=== PATIENT | male | born 1980 | race American Indian/Alaskan Native ===

== ENCOUNTER 2017-01-21 01:53 | Emergency (ER) | payer SELFPAY ==
[2017-01-21 02:14] VITALS: BP 135/89
[2017-01-21] MEDS ORDERED: AUGMENTIN 875 MG PO ONE (03:14)
[2017-01-21] MEDS ORDERED: TYLENOL #3 PO ONE (03:14)
--- NOTE | 2017-01-21 03:29 | Emergency Department Report ---
HPI - General Chief Complaint: Dental/Oral Time Seen by Provider: 01/21/17 02:35 - HPI HPI: The patient is a 36-year-old male who presents to ED complaining of 10/10 pain in the right side of his mouth x 14 days . Patient states that the pain has increased in severity over the last 2-3 days. The pain is exacerbated by eating and opening of the mouth. Patient states the pain is alleviated initially with pain medication but comes back. Patient states that it radiates towards ear. Patient describes a as a throbbing, pressure-like sensation. Patient states otherwise well and has no other complaints. Patient has had no fevers and no chills. No chest pain, no shortness of breath. No abdominal pain. No shortness of breath or recent trauma to the face. ED Past Medical Hx - Past Medical History Previous Medical History?: Yes Hx Asthma: Yes - Surgical History Past Surgical History?: Yes - Social History Smoking Status: Current Every Day Smoker Substance Use Type: Alcohol - Medications Home Medications: Home Medications Medication Instructions Recorded Confirmed Last Taken Type Albuterol Sulfate [Ventolin HFA] 2 puff IH Q4H PRN 04/12/15 04/12/15 Unknown History HYDROcodone/APAP 10-325 [[place] 1 each PO Q6HR PRN #30 tablet 04/12/15 Unknown Rx 10/325] Acetaminophen/Codeine [Tylenol 1 tab PO QHS PRN #10 tablet 01/21/17 Unknown Rx /Codeine # 3 tab] Amoxicillin/K Clav Tab [Augmentin 1 each PO BID #12 tablet 01/21/17 Unknown Rx 875MG TAB] Ibuprofen [Motrin 800 MG tab] 800 mg PO Q8HR PRN #60 tablet 01/21/17 Unknown Rx ED Review of Systems ROS: Stated complaint: TOOTH PAIN Other details as noted in HPI Constitutional: denies: chills, fever Eyes: denies: eye pain, eye discharge, vision change ENT: denies: ear pain, throat pain Respiratory: denies: cough, shortness of breath, wheezing Cardiovascular: denies: chest pain, palpitations Endocrine: no symptoms reported Gastrointestinal: denies: abdominal pain, nausea, diarrhea Genitourinary: denies: urgency, dysuria Musculoskeletal: denies: back pain, joint swelling, arthralgia Skin: denies: rash, lesions Neurological: denies: headache, weakness, paresthesias Psychiatric: denies: anxiety, depression Hematological/Lymphatic: denies: easy bleeding, easy bruising Physical Exam - Physical Exam Vital Signs: Vital Signs 01/21/17 02:06 Temperature 98 F Pulse Rate 84 Respiratory 18 Rate Blood Pressure 135/89 O2 Sat by Pulse 100 Oximetry Physical Exam: GENERAL: Alert and oriented x3, no apparent distress, Normal Gait, atraumatic. HEAD: Head is normocephalic and a-traumatic. EYES: Extra ocular muscles are intact. Pupils are equal, round, and reactive to light and accommodation. MOUTH:Mouth is well hydrated and without lesions. Tonsils nonerythematous or swollen, Uvula midline, Tongue not elevated. Mucous membranes are moist. Posterior pharynx clear, no exudate or lesions. Patent airways. Dental caries noticed blood on the left last 3 teeth. Nontender to palpation, no gingival enlargement NECK: Supple. Non edematous, No carotid bruits. No lymphadenopathy or thyromegaly. No C-spine tenderness LUNGS: Symetrical with respiration, No wheezing, no rales or crackles, CTAB. HEART: S1, S2 present, regular rate and rhythm without murmur, no rubs, no gallops. ED Course Vital Signs 01/21/17 02:06 Temperature 98 F Pulse Rate 84 Respiratory 18 Rate Blood Pressure 135/89 O2 Sat by Pulse 100 Oximetry ED Medical Decision Making - Medical Decision Making 36-year-old female who presents with left-sided Facial pain secondary to odontogenic caries ED course: Patient received 875mg of Augmentin 1 tablets of Tylenol No. 3. Discussed with the patient this is a possible Odontogenic infection . the pain he feels on the left side of his face and towards the ear is referred pain from this infectious process. he has no evidence of acute impending airway compromise. At this point, patient will be discharged home on some antibiotics and pain trial, she will do well with an outpatient course of antibiotics. Follow up with the Dental Clinic as referred Critical care attestation.: If time is entered above; I have spent that time in minutes in the direct care of this critically ill patient, excluding procedure time. ED Disposition Clinical Impression: Dental caries Disposition: - TO HOME OR SELFCARE Is pt being admited?: No Does the pt Need Aspirin: No Condition: Stable Instructions: Toothache (ED), Dental Caries (ED) Additional Instructions: Follow-up with the dentist Prescriptions: Acetaminophen/Codeine [Tylenol /Codeine # 3 tab] 1 tab PO QHS PRN #10 tablet PRN Reason: Breakthrough Pain Amoxicillin/K Clav Tab [Augmentin 875MG TAB] 1 each PO BID #12 tablet Ibuprofen [Motrin 800 MG tab] 800 mg PO Q8HR PRN #60 tablet PRN Reason: anti-inflammatory/pain/fever Referrals: PRIMARY CARE, [Primary Care Provider] - 3-5 Days [facility] [Outside] - 3-5 Days [facility] [Outside] - 3-5 Days Forms: Accompanied Note, Work/School Release Form(ED) Time of Disposition: 03:40
== END 2017-01-21 03:51 | disposition home or self-care (01) ==
LOC: ED 01:53
DX: K02.9 Dental caries, unspecified (principal); J45.909 Unspecified asthma, uncomplicated; F17.200 Nicotine dependence, unspecified, uncomplicated
CPT/HCPCS: 99282

== ENCOUNTER 2022-04-11 19:47 | Emergency (ER) | payer SELFPAY ==
[2022-04-12 04:54] VITALS: BP 160/107
[2022-04-12] MEDS ORDERED: cephALEXin 500 MG CAP PO ONE (05:19)
[2022-04-12] MEDS ORDERED: traMADol 50 MG TAB PO ONE (05:19)
--- NOTE | 2022-04-12 05:46 | Emergency Department Report ---
ED General Adult HPI - General Chief complaint: Skin/Abscess/Foreign Body Stated complaint: ABSCESS INTER THIGH Time Seen by Provider: 04/12/22 05:41 Source: patient Mode of arrival: Ambulatory Limitations: No Limitations - History of Present Illness Initial comments: 42-year-old male who presents for abscess to left inner thigh. States burning itching, Pain to touch. Patient denies fevers or chills no nausea no vomiting. Patient denies history of diabetes. No other symptoms. - Related Data Home Medications Medication Instructions Recorded Confirmed Last Taken Albuterol Sulfate [Ventolin HFA] 2 puff IH Q4H PRN 04/12/15 04/12/15 Unknown Previous Rx's Medication Instructions Recorded Last Taken Type HYDROcodone/APAP 10-325 [[place] 1 each PO Q6HR PRN #30 tablet 04/12/15 Unknown Rx 10/325] Acetaminophen/Codeine [Tylenol 1 tab PO QHS PRN #10 tablet 01/21/17 Unknown Rx /Codeine # 3 tab] Amoxicillin/K Clav Tab [Augmentin 1 each PO BID #12 tablet 01/21/17 Unknown Rx 875MG TAB] Ibuprofen [Motrin 800 MG tab] 800 mg PO Q8HR PRN #60 tablet 01/21/17 Unknown Rx cephALEXin [Keflex] 500 mg PO Q8HR 7 Days #21 cap 04/12/22 Unknown Rx traMADoL [Ultram] 50 mg PO Q6HR PRN #12 tablet 04/12/22 Unknown Rx Allergies Allergy/AdvReac Type Severity Reaction Status Date / Time No Known Allergies Allergy Verified 04/12/15 11:37 ED Review of Systems ROS: Stated complaint: ABSCESS INTER THIGH Other details as noted in HPI Constitutional: denies: chills, fever Eyes: denies: eye pain, eye discharge, vision change ENT: denies: ear pain, throat pain Respiratory: denies: cough, shortness of breath, wheezing Cardiovascular: denies: chest pain, palpitations Endocrine: no symptoms reported Gastrointestinal: denies: abdominal pain, nausea, diarrhea Genitourinary: denies: urgency, dysuria Musculoskeletal: denies: back pain, joint swelling, arthralgia Skin: other (Abscess left inner thigh). denies: rash, lesions Neurological: denies: headache, weakness, paresthesias Psychiatric: denies: anxiety, depression Hematological/Lymphatic: as per HPI ED Past Medical Hx - Past Medical History Hx Asthma: Yes - Social History Smoking Status: Current Every Day Smoker Substance Use Type: Alcohol - Medications Home Medications: Home Medications Medication Instructions Recorded Confirmed Last Taken Type Albuterol Sulfate [Ventolin HFA] 2 puff IH Q4H PRN 04/12/15 04/12/15 Unknown History HYDROcodone/APAP 10-325 [[place] 1 each PO Q6HR PRN #30 tablet 04/12/15 Unknown Rx 10/325] Acetaminophen/Codeine [Tylenol 1 tab PO QHS PRN #10 tablet 01/21/17 Unknown Rx /Codeine # 3 tab] Amoxicillin/K Clav Tab [Augmentin 1 each PO BID #12 tablet 01/21/17 Unknown Rx 875MG TAB] Ibuprofen [Motrin 800 MG tab] 800 mg PO Q8HR PRN #60 tablet 01/21/17 Unknown Rx cephALEXin [Keflex] 500 mg PO Q8HR 7 Days #21 cap 04/12/22 Unknown Rx traMADoL [Ultram] 50 mg PO Q6HR PRN #12 tablet 04/12/22 Unknown Rx ED Physical Exam - General Limitations: No Limitations General appearance: alert, in no apparent distress - Head Head exam: Present: atraumatic, normocephalic - Eye Eye exam: Present: normal appearance, EOMI Pupils: Present: normal accommodation - ENT ENT exam: Present: mucous membranes moist - Neck Neck exam: Present: normal inspection, full ROM. Absent: tenderness, lymphadenopathy - Respiratory Respiratory exam: Present: normal lung sounds bilaterally. Absent: respiratory distress, wheezes - Cardiovascular Cardiovascular Exam: Present: regular rate, normal rhythm, normal heart sounds. Absent: systolic murmur, diastolic murmur, rubs, gallop - GI/Abdominal GI/Abdominal exam: Present: soft, normal bowel sounds - Rectal Rectal exam: Present: deferred - Extremities Exam Extremities exam: Present: normal inspection, full ROM, normal capillary refill - Back Exam Back exam: Present: normal inspection, full ROM. Absent: CVA tenderness (R), CVA tenderness (L) - Neurological Exam Neurological exam: Present: alert, oriented X3, CN II-XII intact, normal gait - Psychiatric Psychiatric exam: Present: normal affect, normal mood - Skin Skin exam: Present: warm, dry, intact, normal color, erythema (2. Centimeter abscess left medial inner thigh fluctuant mild erythema. No drainage painful with). Absent: rash ED Course Vital Signs 04/11/22 04/12/22 20:04 04:54 Temperature 98.2 F Pulse Rate 79 80 Respiratory 18 14 Rate Blood Pressure 160/107 [Left] O2 Sat by Pulse 98 100 Oximetry - Procedure Description Procedures done: Patient declines I&D, however would allow needle aspiration. Site cleaned with Betadine solution needle aspiration with 18-gauge needle and 10 cc syringe approximately 3 cc of purulent drainage fluctuance is resolved pain is improved. Sterile dressing applied all bleeders controlled patient tolerated procedure with minimal distress. Patient given follow-up instructions including warm compresses, antibiotics as prescribed. Follow-up with primary care doctor in 2 to 3 days or return to emergency department should symptoms worsen. ED Medical Decision Making - Medical Decision Making Skin abscess left thigh see procedure note, patient DC to home with prescriptions at this time. Patient given wound care instructions. Patient will follow-up primary care in 2 to 3 days. Patient will return to emergency department should symptoms worsen. Patient DC'd home in stable condition at this time. Critical care attestation.: If time is entered above; I have spent that time in minutes in the direct care of this critically ill patient, excluding procedure time. ED Disposition Clinical Impression: Abscess of left thigh Disposition: HOME / SELF CARE / HOMELESS Is pt being admited?: No Does the pt Need Aspirin: No Condition: Stable Instructions: Skin Abscess Additional Instructions: Take medications as prescribed, moist heat therapy as directed. Follow-up with your doctor in 2 to 3 days. Return to emergency department should symptoms worsen. Prescriptions: cephALEXin [Keflex] 500 mg PO Q8HR 7 Days #21 cap traMADoL [Ultram] 50 mg PO Q6HR PRN #12 tablet PRN Reason: Pain Referrals: [facility] [Provider Group] - 3-5 Days Forms: Work/School Release Form(ED) Time of Disposition: 05:48
== END 2022-04-12 06:11 | disposition home or self-care (01) ==
LOC: ED 19:47
DX: L02.416 Cutaneous abscess of left lower limb (principal); F17.200 Nicotine dependence, unspecified, uncomplicated; J45.909 Unspecified asthma, uncomplicated
CPT/HCPCS: 99282

== ENCOUNTER 2022-04-15 20:34 | Emergency (ER) | payer SELFPAY ==
[2022-04-16] MEDS ORDERED: HYDROcodone/ACETAMINOPHEN 5-325 MG TAB PO ONE (02:30)
[2022-04-16] MEDS ORDERED: IBUPROFEN 800 MG TAB PO ONE (02:30)
[2022-04-16] MEDS ORDERED: SULFAMETHOXAZOLE/TRIMETHOPRIM 800/160MG DS TAB PO ONE (02:31)
--- NOTE | 2022-04-16 02:31 | Emergency Department Report ---
ED General Adult HPI - General Chief complaint: Wound/Laceration Stated complaint: CYST ON LEFT LEG Time Seen by Provider: 04/16/22 01:49 Source: patient Mode of arrival: Ambulatory Limitations: No Limitations - History of Present Illness Initial comments: 42-year-old male with no significant past medical history reports to the ER with complaints of left upper inner thigh abscess with drainage and pain. Patient was recently seen within his ER on the second and treated with oral antibiotics after having abscess drained. Patient reports taking antibiotics and pain medicine as directed. Patient reports increasing pain and drainage from abscess. Patient denies fever chills no weakness. No other acute symptoms reported. - Related Data Home Medications Medication Instructions Recorded Confirmed Last Taken Albuterol Sulfate [Ventolin HFA] 2 puff IH Q4H PRN 04/12/15 04/12/15 Unknown Previous Rx's Medication Instructions Recorded Last Taken Type HYDROcodone/APAP 10-325 [[place] 1 each PO Q6HR PRN #30 tablet 04/12/15 Unknown Rx 10/325] Acetaminophen/Codeine [Tylenol 1 tab PO QHS PRN #10 tablet 01/21/17 Unknown Rx /Codeine # 3 tab] Amoxicillin/K Clav Tab [Augmentin 1 each PO BID #12 tablet 01/21/17 Unknown Rx 875MG TAB] Ibuprofen [Motrin 800 MG tab] 800 mg PO Q8HR PRN #60 tablet 01/21/17 Unknown Rx cephALEXin [Keflex] 500 mg PO Q8HR 7 Days #21 cap 04/12/22 Unknown Rx traMADoL [Ultram] 50 mg PO Q6HR PRN #12 tablet 04/12/22 Unknown Rx Acetaminophen/Codeine [Tylenol 1 tab PO Q6H PRN 2 Days #8 tab 04/16/22 Unknown Rx /Codeine # 3 tab] Ibuprofen [Motrin] 800 mg PO Q8HR PRN 6 Days #18 04/16/22 Unknown Rx tablet Sulfamethoxazole/Trimethoprim 1 each PO BID 10 Days #20 tab 04/16/22 Unknown Rx [Bactrim DS TAB] Allergies Allergy/AdvReac Type Severity Reaction Status Date / Time No Known Allergies Allergy Verified 04/12/15 11:37 ED Review of Systems ROS: Stated complaint: CYST ON LEFT LEG Other details as noted in HPI Comment: All other systems reviewed and negative Skin: other (Open abscess left inner thigh) ED Past Medical Hx - Past Medical History Previous Medical History?: Yes Hx Asthma: Yes - Social History Smoking Status: Current Every Day Smoker Substance Use Type: Alcohol - Medications Home Medications: Home Medications Medication Instructions Recorded Confirmed Last Taken Type Albuterol Sulfate [Ventolin HFA] 2 puff IH Q4H PRN 04/12/15 04/12/15 Unknown History HYDROcodone/APAP 10-325 [[place] 1 each PO Q6HR PRN #30 tablet 04/12/15 Unknown Rx 10/325] Acetaminophen/Codeine [Tylenol 1 tab PO QHS PRN #10 tablet 01/21/17 Unknown Rx /Codeine # 3 tab] Amoxicillin/K Clav Tab [Augmentin 1 each PO BID #12 tablet 01/21/17 Unknown Rx 875MG TAB] Ibuprofen [Motrin 800 MG tab] 800 mg PO Q8HR PRN #60 tablet 01/21/17 Unknown Rx cephALEXin [Keflex] 500 mg PO Q8HR 7 Days #21 cap 04/12/22 Unknown Rx traMADoL [Ultram] 50 mg PO Q6HR PRN #12 tablet 04/12/22 Unknown Rx Acetaminophen/Codeine [Tylenol 1 tab PO Q6H PRN 2 Days #8 tab 04/16/22 Unknown Rx /Codeine # 3 tab] Ibuprofen [Motrin] 800 mg PO Q8HR PRN 6 Days #18 04/16/22 Unknown Rx tablet Sulfamethoxazole/Trimethoprim 1 each PO BID 10 Days #20 tab 04/16/22 Unknown Rx [Bactrim DS TAB] ED Physical Exam - General Limitations: No Limitations General appearance: alert, in no apparent distress - Head Head exam: Present: atraumatic, normocephalic - Eye Eye exam: Present: normal appearance - ENT ENT exam: Present: mucous membranes moist - Neck Neck exam: Present: normal inspection - Respiratory Respiratory exam: Present: normal lung sounds bilaterally. Absent: respiratory distress - Cardiovascular Cardiovascular Exam: Present: regular rate, normal rhythm. Absent: systolic murmur, diastolic murmur, rubs, gallop - GI/Abdominal GI/Abdominal exam: Present: soft, normal bowel sounds - Rectal Rectal exam: Present: deferred - Extremities Exam Extremities exam: Present: normal inspection - Back Exam Back exam: Present: normal inspection - Neurological Exam Neurological exam: Present: alert, oriented X3 - Psychiatric Psychiatric exam: Present: normal affect, normal mood - Skin Skin exam: Present: warm, dry, normal color, other (Open abscess left upper inner thigh. No drainage with expression. Erythema around opening. No streaking noted.). Absent: rash ED Course Vital Signs 04/15/22 04/16/22 21:27 03:31 Temperature 98.8 F Pulse Rate 64 63 Respiratory 18 12 Rate Blood Pressure 146/86 141/87 [Right] O2 Sat by Pulse 100 100 Oximetry ED Medical Decision Making - Medical Decision Making 42-year-old male reports back to the ER with complaints of increased pain and drainage to left upper thigh abscess that was drained a few days ago here in ER. No fever reported. Patient reports taking his antibiotics as directed and taking his pain medication as directed. On physical exam there is no drainage with expression noted. But there is drainage on dressing that patient pulls off. Erythema noted around opening of abscess. No streaking noted. Patient is currently on Keflex 500 Q8. And tramadol 50 mg. Keflex 500 discontinue patient to be started on Bactrim DS twice daily 10 days Patient given a short course of Tylenol 3 for pain control. Patient informed to follow-up for primary care services and report back to the ER if pain gets worse or infection gets worse. Patient agrees with plan of care verbalized understanding. Vital Signs 04/15/22 04/16/22 21:27 03:31 Temperature 98.8 F Pulse Rate 64 63 Respiratory 18 12 Rate Blood Pressure 146/86 141/87 [Right] O2 Sat by Pulse 100 100 Oximetry Critical care attestation.: If time is entered above; I have spent that time in minutes in the direct care of this critically ill patient, excluding procedure time. ED Disposition Clinical Impression: Abscess of left thigh Disposition: 01 HOME / SELF CARE / HOMELESS Is pt being admited?: No Condition: Stable Instructions: Skin Abscess Prescriptions: Sulfamethoxazole/Trimethoprim [Bactrim DS TAB] 1 each PO BID 10 Days #20 tab Ibuprofen [Motrin] 800 mg PO Q8HR PRN 6 Days #18 tablet PRN Reason: Pain , Severe (7-10) Acetaminophen/Codeine [Tylenol /Codeine # 3 tab] 1 tab PO Q6H PRN 2 Days #8 tab PRN Reason: Pain , Severe (7-10) Referrals: JASMIN BAILEY MD [Primary Care Provider] - 3-5 Days
[2022-04-16 03:32] VITALS: BP 141/87
== END 2022-04-16 03:32 | disposition home or self-care (01) ==
LOC: ED 20:34
DX: L02.416 Cutaneous abscess of left lower limb (principal); J45.909 Unspecified asthma, uncomplicated; F17.200 Nicotine dependence, unspecified, uncomplicated
CPT/HCPCS: 99282